=== PATIENT | female | born 1995 | race Two or more races ===

== ENCOUNTER 2019-08-26 17:09 | Inpatient (IN) | payer OTHER ==
[~2019-08-26] VITALS: Ht 165.1 cm; Wt 90.4 kg
[2019-08-26] MEDS ORDERED: ARIP5TAB8 PO (17:43)
[2019-08-26] MEDS ORDERED: VENL50TA44 PO (17:43)
[2019-08-26] MEDS ORDERED: HALOPERIDOL 5 MG TABLET PO PRN (17:45)
[2019-08-26 18:06] VITALS: BP 115/75
[2019-08-26] MEDS ORDERED: INFLUENZA VIRUS VACCINE QVS 2019-20 (3YR+)/PF 60 MCG/0.5 ML SYRINGE IM ONE (18:45)
[2019-08-26] MEDS: ZOLPIDEM TARTRATE 10 MG TABLET PO PRN (22:46)
[2019-08-26] MEDS ORDERED: ACETAMINOPHEN 325 MG TABLET PO PRN (23:15)
[2019-08-26] MEDS ORDERED: IBUPROFEN 600 MG TABLET PO PRN (23:15)
[2019-08-27 04:31] VITALS: BP 115/74
[2019-08-27] MEDS: LORazepam 2 MG TABLET PO PRN (04:34)
[2019-08-27] MEDS ORDERED: ONDANSETRON HCL 4 MG TABLET PO PRN (07:15)
[2019-08-27] MEDS ORDERED: ACETAMINOPHEN 325 MG TABLET PO PRN (07:15)
[2019-08-27] MEDS ORDERED: BENZOCAINE/MENTHOL LOZENGE MM PRN (07:15)
[2019-08-27] MEDS ORDERED: DOCUSATE SODIUM 100 MG CAPSULE PO PRN (07:15)
[2019-08-27] MEDS ORDERED: PETROLATUM,WHITE 28 GM JELLY TP PRN (07:15)
[2019-08-27] MEDS ORDERED: BACITRACIN 28.4 GM OINTMENT TP PRN (07:15)
[2019-08-27] MEDS ORDERED: LOPERAMIDE HCL 2 MG CAPSULE PO PRN (07:15)
[2019-08-27] MEDS ORDERED: MAG HYDROX/AL HYDROX/SIMETH ES 30 ML SUSPENSION UDCUP PO PRN (07:15)
[2019-08-27] MEDS ORDERED: MAGNESIUM HYDROXIDE SUSPENSION 30 ML UDCUP PO PRN (07:15)
[2019-08-27] MEDS ORDERED: OMEPRAZOLE 20 MG CAPSULE PO PRN (07:15)
[2019-08-27] MEDS ORDERED: ALBUTEROL SULFATE HFA 90 MCG/PUFF 8 GM INHALER IH PRN (07:15)
[2019-08-27] MEDS ORDERED: CloNIDine HCL 0.1 MG TABLET PO PRN (07:15)
[2019-08-27 08:25] LABS: BASOPHILS % (AUTO) 0.6 % (0.0-2.0); EOSINOPHILS % (AUTO) 1.9 % (1.0-6.0); HEMATOCRIT 34.7 % (36-46); HEMOGLOBIN 11.8 g/dL (12.0-16.0); LYMPHOCYTES # (AUTO) 2.5 K/uL (1.0-4.8); LYMPHOCYTES % (AUTO) 39.7 % (22.0-44.0); MEAN CORPUSCULAR HEMOGLOBIN 28.4 pg (26.0-34.0); MEAN CORPUSCULAR HGB CONC 33.9 G/dL (31.0-37.0); MEAN CORPUSCULAR VOLUME 84 fL (80-100); MONOCYTES # (AUTO) 0.4 K/uL (0.1-1.0); NEUTROPHILS # (AUTO) 3.2 K/uL (1.8-7.7); NEUTROPHILS % (AUTO) 51.8 % (40.0-70.0); PLATELET COUNT (AUTO) 208 K/uL (150-450); RED BLOOD CELL COUNT(AUTO) 4.15 MIL/uL (4.00-5.20); RED CELL DISTRIBUTION WIDTH 14.3 % (11.5-14.5)
[2019-08-27 08:41] VITALS: BP 110/78
[2019-08-27 08:45] LABS: HEMOGLOBIN A1C 5.1 % (4.5-6.2)
[2019-08-27 08:47] LABS: ALANINE AMINOTRANSFERASE 41 U/L (12-78); ALBUMIN 2.8 g/dL (3.4-5.0); ALKALINE PHOSPHATASE 84 U/L (46-116); ANION GAP 7 mmol/L (8-16); ASPARTATE AMINOTRANSFERASE 28 U/L (15-37); BILIRUBIN,TOTAL 0.5 mg/dL (0.1-1.0); CALCIUM, TOTAL 8.7 mg/dL (8.8-10.5); CARBON DIOXIDE 26 mmol/L (22-29); CHLORIDE 103 mmol/L (98-107); CHOL/HDL RATIO 2.5 (3.9-5.7); CHOLESTEROL 149 mg/dL (131-200); CREATININE 0.68 mg/dL (0.60-1.30); FREE T4 (FREE THYROXINE) 1.53 ng/dL (0.76-1.46); GLOMERULAR FILTR. RATE CALC > 60 mL/min (>60); GLUCOSE,RANDOM 71 mg/dL (70-110); HCG,QUANTITATIVE < 1 mIU/mL (0-6); HDL CHOLESTEROL 60 mg/dL (40-60); LDL CHOL (CALC.) 71 mg/dL (0-130); POTASSIUM 3.6 mmol/L (3.5-5.1); SODIUM SERUM 136 mmol/L (136-145); TOTAL PROTEIN, SERUM 6.7 g/dL (6.4-8.2); TRIGLYCERIDES 91 mg/dL (15-150); UREA NITROGEN, BLOOD 7 mg/dL (7-18)
[2019-08-27] MEDS ORDERED: *NON-FORMULARY MED [ENTER DRUG, DOSE, FREQ IN COMMENTS] CLINICAL ONE (09:00)
[2019-08-27] MEDS: CITALOPRAM HYDROBROMIDE 20 MG TABLET PO SCH (09:23)
[2019-08-27 16:05] VITALS: BP 105/77
[2019-08-27] MEDS: ZOLPIDEM TARTRATE 10 MG TABLET PO PRN (21:16)
[2019-08-28 05:50] VITALS: BP 102/74
[2019-08-28] MEDS: LOESTRIN FE PO SCH (08:46)
[2019-08-28] MEDS: VENLAFAXINE HCL 150 MG ER CAPSULE PO SCH (08:47)
[2019-08-28] MEDS: CITALOPRAM HYDROBROMIDE 20 MG TABLET PO SCH (08:47)
[2019-08-28] MEDS: ARIPiprazole 5 MG TABLET PO SCH (08:47)
[2019-08-28 11:00] VITALS: BP 114/70
[2019-08-28] MEDS: IBUPROFEN 600 MG TABLET PO PRN (11:00)
[2019-08-28 16:46] VITALS: BP 110/76
[2019-08-28] MEDS: ZOLPIDEM TARTRATE 10 MG TABLET PO PRN (20:47)
[2019-08-29 04:40] VITALS: BP 101/74
[2019-08-29] MEDS: IBUPROFEN 600 MG TABLET PO PRN (04:43)
[2019-08-29] MEDS: LORazepam 2 MG TABLET PO PRN (04:43)
[2019-08-29 05:29] VITALS: BP 101/74
[2019-08-29 08:22] VITALS: BP 111/68
[2019-08-29] MEDS: VENLAFAXINE HCL 150 MG ER CAPSULE PO SCH (09:53)
[2019-08-29] MEDS: ARIPiprazole 5 MG TABLET PO SCH (09:53)
[2019-08-29] MEDS: LOESTRIN FE PO SCH (09:53)
[2019-08-29] MEDS: CITALOPRAM HYDROBROMIDE 20 MG TABLET PO SCH (09:57)
[2019-08-29 16:31] VITALS: BP 106/57
[2019-08-29] MEDS: ZOLPIDEM TARTRATE 10 MG TABLET PO PRN (21:17)
[2019-08-30 05:04] VITALS: BP 103/75
[2019-08-30 08:00] VITALS: BP 104/66
[2019-08-30] MEDS: LOESTRIN FE PO SCH (09:04)
[2019-08-30] MEDS: VENLAFAXINE HCL 150 MG ER CAPSULE PO SCH (09:05)
[2019-08-30] MEDS: ARIPiprazole 5 MG TABLET PO SCH (09:05)
[2019-08-30] MEDS: CITALOPRAM HYDROBROMIDE 20 MG TABLET PO SCH (09:05)
[2019-08-30 19:26] VITALS: BP 104/71
[2019-08-30] MEDS: ZOLPIDEM TARTRATE 10 MG TABLET PO PRN (21:25)
[2019-08-31 06:11] VITALS: BP 101/68
[2019-08-31 08:17] VITALS: BP 108/69
[2019-08-31] MEDS ORDERED: CITA10TA68 PO (08:38)
[2019-08-31] MEDS: LOESTRIN FE PO SCH (08:49)
[2019-08-31] MEDS: VENLAFAXINE HCL 150 MG ER CAPSULE PO SCH (08:50)
[2019-08-31] MEDS: ARIPiprazole 5 MG TABLET PO SCH (08:50)
[2019-08-31] MEDS: CITALOPRAM HYDROBROMIDE 20 MG TABLET PO SCH (08:50)
== END 2019-08-31 14:28 | disposition home or self-care (01) | DRG 881 ==
LOC: EDBD 17:48 → B3A 17:48
PROVIDERS: ADMIT Psychiatry & Neurology Psychiatry; ATTEND Psychiatry & Neurology Psychiatry
DX: F32.9 Major depressive disorder, single episode, unspecified (principal); R45.851 Suicidal ideations; F41.9 Anxiety disorder, unspecified; G47.00 Insomnia, unspecified; J45.909 Unspecified asthma, uncomplicated; K59.00 Constipation, unspecified; F22 Delusional disorders
CPT/HCPCS: 83036; 84439; 84443; 90686